=== PATIENT | female | born 1995 | race American Indian/Alaskan Native ===

== ENCOUNTER 2020-02-03 11:42 | Emergency (ER) | payer MEDICAID ==
[2020-02-03 12:19] VITALS: BP 136/81
--- NOTE | 2020-02-03 12:19 | Emergency Department Report ---
ED General Adult HPI - General Stated complaint: ACCIDENTAL OVERDOSE Time Seen by Provider: 02/03/20 12:02 - History of Present Illness Initial comments: This is a 24-year-old female that states she thought she was taking 5 mg of melatonin but accidentally took 5 Lexapro pills instead. This occurred at 10:30 in the morning. Patient denies any intent to self-harm. She states that she has PTSD and was having insomnia last night. She states he was unable to sleep until 1030 resulting in taking the melatonin. She states she has been on melatonin in the past for this. Patient does not admit to being depressed. She states that she had a voluntary psychiatric history in August 2019 for PTSD but otherwise no prior hospitalizations. -: Gradual, hour(s) Associated Symptoms: denies other symptoms, nausea/vomiting, other ([place] dizzy and nauseated after ingestion) ED Review of Systems ROS: Stated complaint: ACCIDENTAL OVERDOSE Other details as noted in HPI Constitutional: denies: chills, fever Eyes: denies: eye pain, vision change ENT: denies: ear pain, throat pain Respiratory: denies: cough, shortness of breath, wheezing Cardiovascular: denies: chest pain, palpitations Endocrine: no symptoms reported Gastrointestinal: denies: abdominal pain, nausea, diarrhea Genitourinary: denies: urgency, dysuria, discharge Musculoskeletal: denies: back pain, arthralgia Skin: denies: rash, lesions Neurological: denies: headache, weakness, paresthesias Psychiatric: denies: anxiety, depression Hematological/Lymphatic: denies: easy bleeding, easy bruising ED Past Medical Hx - Past Medical History Additional medical history: PTSD - Social History Substance Use Type: None ED Physical Exam - General Limitations: Physical Limitation General appearance: alert, in no apparent distress, obese - Head Head exam: Present: atraumatic, normocephalic - Eye Eye exam: Present: normal appearance - ENT ENT exam: Present: mucous membranes moist - Neck Neck exam: Present: normal inspection - Respiratory Respiratory exam: Present: normal lung sounds bilaterally. Absent: respiratory distress - Cardiovascular Cardiovascular Exam: Present: regular rate, normal rhythm. Absent: systolic murmur, diastolic murmur, rubs, gallop - GI/Abdominal GI/Abdominal exam: Present: soft, normal bowel sounds. Absent: distended, tenderness, guarding, rebound - Extremities Exam Extremities exam: Present: normal inspection - Back Exam Back exam: Present: normal inspection - Neurological Exam Neurological exam: Present: alert, oriented X3, CN II-XII intact. Absent: motor sensory deficit - Psychiatric Psychiatric exam: Present: normal affect, normal mood - Skin Skin exam: Present: warm, dry, intact, normal color. Absent: rash ED Course Vital Signs 02/03/20 12:14 Temperature 98.4 F Pulse Rate 86 Respiratory 16 Rate Blood Pressure 136/81 O2 Sat by Pulse 99 Oximetry Patient was observed without any untoward events. She is appropriate for discharge and outpatient follow-up. ED Medical Decision Making - Lab Data Result diagrams: 02/03/20 12:19 02/03/20 12:19 Laboratory Results - last 24 hr 02/03/20 02/03/20 02/03/20 12:19 12:19 12:19 WBC RBC Hgb Hct MCV MCH MCHC RDW Plt Count Lymph % (Auto) [place] % (Auto) Eos % (Auto) Baso % (Auto) Lymph # Oliver # Eos # Baso # Seg Neutrophils % Seg Neutrophils # Sodium 139 Potassium 4.0 Chloride 104.7 Carbon Dioxide 21 L Anion Gap 17 BUN 13 Creatinine 0.6 L Estimated GFR > 60 BUN/Creatinine Ratio 22 Glucose 91 Calcium 9.1 HCG, Qual Salicylates < 0.3 L Acetaminophen < 5.0 L Plasma/Serum Alcohol 02/03/20 02/03/20 02/03/20 12:19 12:19 12:25 WBC 5.1 RBC 4.05 Hgb 11.7 Hct 33.5 MCV 83 MCH 29 MCHC 35 H RDW 15.9 H Plt Count 318 Lymph % (Auto) 21.5 Oliver % (Auto) 8.7 H Eos % (Auto) 0.4 Baso % (Auto) 1.3 Lymph # 1.1 L Oliver # 0.4 Eos # 0.0 Baso # 0.1 Seg Neutrophils % 68.1 Seg Neutrophils # 3.5 Sodium Potassium Chloride Carbon Dioxide Anion Gap BUN Creatinine Estimated GFR BUN/Creatinine Ratio Glucose Calcium HCG, Qual Negative Salicylates Acetaminophen Plasma/Serum Alcohol < 0.01 - EKG Data -: EKG Interpreted by Tn EKG shows normal: sinus rhythm, axis, intervals, QRS complexes, ST-T waves Rate: normal - EKG Data Interpretation: normal EKG Critical care attestation.: If time is entered above; I have spent that time in minutes in the direct care of this critically ill patient, excluding procedure time. ED Disposition Clinical Impression: Accidental overdose Qualifiers: Encounter type: initial encounter Qualified Code(s): T50.901A - Poisoning by unspecified drugs, medicaments and biological substances, accidental (unintentional), initial encounter Disposition: DC- TO HOME OR SELFCARE Is pt being admited?: No Does the pt Need Aspirin: No Condition: Stable Instructions: Escitalopram (By mouth), Melatonin (By mouth) Additional Instructions: Follow-up with your usual primary care provider. Return any acute change or problem. Referrals: PRIMARY CARE, [Primary Care Provider] - 2-3 Days Time of Disposition: 13:55
[2020-02-03 12:48] LABS: Basophils # (Auto) 0.1 K/mm3 (0.0-0.1); Basophils % (Auto) 1.3 % (0.0-1.8); Eosinophils % (Auto) 0.4 % (0.0-4.3); Hematocrit 33.5 % (30.3-42.9); Hemoglobin 11.7 gm/dl (10.1-14.3); Lymphocytes # (Auto) 1.1 K/mm3 (1.2-5.4); Lymphocytes % (Auto) 21.5 % (13.4-35.0); Mean Corpuscular HGB Conc 35 % (30-34); Mean Corpuscular Volume 83 fl (79-97); Monocytes # (Auto) 0.4 K/mm3 (0.0-0.8); Monocytes % (Auto) 8.7 % (0.0-7.3); Platelet Count 318 K/mm3 (140-440); Red Blood Count 4.05 M/mm3 (3.65-5.03); Red Cell Distribution Width 15.9 % (13.2-15.2)
[2020-02-03 12:53] LABS: BUN/Creatinine Ratio 22; Blood Urea Nitrogen 13 mg/dL (7-17); Calcium 9.1 mg/dL (8.4-10.2); Hemolysis Index 7
== END 2020-02-03 14:28 | disposition home or self-care (01) ==
LOC: ED 11:42
DX: T65.91XA Toxic effect of unspecified substance, accidental (unintentional), initial encounter (principal)
CPT/HCPCS: 36415; 80048; 80320; 84703; 85025; 93005; 99283; G0480

== ENCOUNTER 2020-05-29 03:13 | Emergency (ER) | payer MEDICAID ==
[2020-05-29 03:45] VITALS: BP 144/97
[2020-05-29] MEDS ORDERED: predniSONE 20 MG TAB PO ONE (04:45)
[2020-05-29] MEDS ORDERED: ACETAMINOPHEN 500 MG TAB PO ONE (04:45)
[2020-05-29] MEDS ORDERED: IBUPROFEN 600 MG TAB PO ONE (04:46)
--- NOTE | 2020-05-29 05:07 | Emergency Department Report ---
ED Extremity Problem HPI - General Chief complaint: Eye Problems Stated complaint: MARTÍNEZ, PAIN LT LEG Source: patient Mode of arrival: Ambulatory Limitations: No Limitations - History of Present Illness Initial comments: Patient is a 24-year-old -Citizen Of [place] female with past medical history of morbid obesity and PTSD who presents to the ED with complaint of acute onset persistent severe left hip pain that radiates to the left thigh and distally to the left foot persistently for the last 12 hours. Patient states that the pain is persistent and worse with any ambulation or palpation of the left leg. Patient denies fall, traumatic injury, dizziness, syncope, low back pain, shortness of breath, chest pain, fever, chills, nausea, vomiting, heavy lifting, numbness and tingling or weakness of left leg, fever and chills MD Complaint: extremity pain (Left hip pain that radiates to the left leg), joint paint (Left hip pain) -: Sudden, days(s) (12) Location: left, lower extremity (Hip) History of Same: No -: Yes arthralgia (Left hip pain) Radiation: distal Severity scale (0 -10): 10 Quality: aching, sharp Consistency: constant Improves with: nothing Worsens with: weight bearing, walking, exertion, palpation Associated Symptoms: denies other symptoms, arthralgias (Left hip pain), rash. denies: chest pain, shortness of breath, fever, myalgias - Related Data Previous Rx's Medication Instructions Recorded Last Taken Type Cyclobenzaprine [Flexeril] 10 mg PO QHS PRN #12 tablet 05/29/20 Unknown Rx Naproxen 500 mg PO Q12H PRN #30 tablet 05/29/20 Unknown Rx predniSONE [Deltasone] 40 mg PO QDAY #10 tab 05/29/20 Unknown Rx Allergies Allergy/AdvReac Type Severity Reaction Status Date / Time No Known Allergies Allergy Unverified 02/29/20 16:13 ED Review of Systems ROS: Stated complaint: MARTÍNEZ, PAIN LT LEG Other details as noted in HPI Constitutional: denies: chills, fever Eyes: denies: eye pain, eye discharge, vision change ENT: denies: ear pain, throat pain Respiratory: denies: cough, shortness of breath, wheezing Cardiovascular: denies: chest pain, palpitations Endocrine: no symptoms reported Gastrointestinal: denies: abdominal pain, nausea, diarrhea Genitourinary: denies: urgency, dysuria, discharge Musculoskeletal: arthralgia (Left hip pain that radiates to the left leg). denies: back pain, joint swelling Skin: denies: rash, lesions Neurological: denies: headache, weakness, paresthesias Psychiatric: denies: anxiety, depression Hematological/Lymphatic: denies: easy bleeding, easy bruising ED Past Medical Hx - Past Medical History Previous Medical History?: Yes Hx Psychiatric Treatment: Yes (PTSD) Additional medical history: PTSD - Surgical History Past Surgical History?: Yes Additional Surgical History: Oral. Left eye - Social History Smoking Status: Current Every Day Smoker Substance Use Type: Marijuana - Medications Home Medications: Home Medications Medication Instructions Recorded Confirmed Last Taken Type Cyclobenzaprine [Flexeril] 10 mg PO QHS PRN #12 tablet 05/29/20 Unknown Rx Naproxen 500 mg PO Q12H PRN #30 tablet 05/29/20 Unknown Rx predniSONE [Deltasone] 40 mg PO QDAY #10 tab 05/29/20 Unknown Rx ED Physical Exam - General Limitations: No Limitations General appearance: alert, in no apparent distress, obese - Head Head exam: Present: atraumatic, normocephalic, normal inspection - Eye Eye exam: Present: normal appearance, PERRL, EOMI Pupils: Present: normal accommodation - ENT ENT exam: Present: normal exam, normal orophraynx, mucous membranes moist, TM's normal bilaterally, normal external ear exam - Neck Neck exam: Present: normal inspection, full ROM - Respiratory Respiratory exam: Present: normal lung sounds bilaterally. Absent: respiratory distress, wheezes, rales, rhonchi, chest wall tenderness, accessory muscle use, decreased breath sounds - Cardiovascular Cardiovascular Exam: Present: regular rate, normal rhythm, normal heart sounds. Absent: systolic murmur, diastolic murmur, rubs, gallop - GI/Abdominal GI/Abdominal exam: Present: soft, normal bowel sounds. Absent: tenderness, guarding, rebound, hyperactive bowel sounds, hypoactive bowel sounds - Extremities Exam Extremities exam: Present: normal inspection, full ROM, tenderness (Palpable left hip tenderness), normal capillary refill. Absent: pedal edema, joint swelling, calf tenderness - Back Exam Back exam: Present: normal inspection, full ROM. Absent: tenderness, CVA tenderness (R), CVA tenderness (L), muscle spasm, paraspinal tenderness, vertebral tenderness - Neurological Exam Neurological exam: Present: alert, oriented X3, CN II-XII intact, normal gait, reflexes normal - Psychiatric Psychiatric exam: Present: normal affect, normal mood - Skin Skin exam: Present: warm, dry, intact, normal color. Absent: rash ED Course Vital Signs 05/29/20 03:43 Temperature 98.4 F Pulse Rate 83 Respiratory 18 Rate Blood Pressure 144/97 O2 Sat by Pulse 96 Oximetry ED Medical Decision Making - Medical Decision Making Thisis a 24-year-old -Citizen Of [place] female with past medical history of morbid obesity and PTSD who presents to the ED with complaint of acute onset persistent severe left hip pain that radiates to the left thigh and distally to the left foot persistently for the last 12 hours. Patient states that the pain is persistent and worse with any ambulation or palpation of the left leg. In the ED, patient is alert and oriented x3 and is not in distress. Patient was treated for pain in the ED and on reevaluation, patient's pain is moderately controlled at the time of reevaluation. Patient was discharged home on pain medications and advised to follow-up with her primary care physician in 5 to 7 days for reevaluation or return to the ED immediately if her symptoms get worse. - Differential Diagnosis Hip bursitis; muscle strain; tendinitis; sciatica Critical care attestation.: If time is entered above; I have spent that time in minutes in the direct care of this critically ill patient, excluding procedure time. ED Disposition Clinical Impression: Injury of sciatic nerve at hip and thigh level, left leg, initial encounter Bursitis of left hip Qualifiers: Hip bursitis location: unspecified Qualified Code(s): M70.72 - Other bursitis of hip, left hip Muscle strain of left lower extremity Qualifiers: Encounter type: initial encounter Qualified Code(s): S86.912A - Strain of unspecified muscle(s) and tendon(s) at lower leg level, left leg, initial encounter Disposition: - TO HOME OR SELFCARE Is pt being admited?: No Does the pt Need Aspirin: No Condition: Stable Instructions: Muscle Strain (ED), Hip Bursitis (ED), Sciatica (ED) Additional Instructions: Take medication with food, drink plenty of fluids and follow-up with your primary care physician in 5 to 7 days for reevaluation. Return to the ED immediately if symptoms get worse. Prescriptions: Cyclobenzaprine [Flexeril] 10 mg PO QHS PRN #12 tablet PRN Reason: Muscle Spasm predniSONE [Deltasone] 40 mg PO QDAY #10 tab Naproxen 500 mg PO Q12H PRN #30 tablet PRN Reason: Pain , Severe (7-10) Referrals: [facility] [Provider Group] - 3-5 Days Time of Disposition: 05:10 Print Language: SY[place]
== END 2020-05-29 05:35 | disposition home or self-care (01) ==
LOC: ED 03:13
DX: S86.912A Strain of unspecified muscle(s) and tendon(s) at lower leg level, left leg, initial encounter (principal); S74.02XA Injury of sciatic nerve at hip and thigh level, left leg, initial encounter; M70.72 Other bursitis of hip, left hip; E66.01 Morbid (severe) obesity due to excess calories; F17.200 Nicotine dependence, unspecified, uncomplicated; F12.90 Cannabis use, unspecified, uncomplicated; Z68.42 Body mass index [BMI] 45.0-49.9, adult; Z79.899 Other long term (current) drug therapy; Z98.890 Other specified postprocedural states; X58.XXXA Exposure to other specified factors, initial encounter; Y93.89 Activity, other specified; Y92.89 Other specified places as the place of occurrence of the external cause; Y99.8 Other external cause status
CPT/HCPCS: 99282; J7512; 94644